=== PATIENT | female | born 1955 ===

== ENCOUNTER 2021-05-28 05:45 | Observation (INO) ==
[~2021-05-28 05:45] MED LIST: Buffered Lidocaine 1% SYRIN 1 ml INTRADERM ONE; DiMENhydriNATE IV 50 mg/ml 1 ml VIAL IV PUSH ONE; HYDROcodone/ACETAMIN 5/325 mg TAB PO PRN; Lactated Ringers 1000 ml BAG 1,000 ML IV SCH; Metoclopramide 5 MG/ML VIAL (10 mg) IV PRN; Naloxone 0.4 mg VIAL 0.4 mg/ml 1 ml VIAL IV PRN; Ondansetron 4 mg VIAL 2 MG/ML 2 ml VIAL IV PRN
[2021-05-28] MEDS ORDERED: DiMENhydriNATE IV 50 mg/ml 1 ml VIAL ONE (05:59)
[2021-05-28] MEDS ORDERED: ceFAZolin 2 GM in NS PREMIX 2 GM/100 ML BAG IVPB ONE (06:00)
[2021-05-28] MEDS ORDERED: Lidocaine 2% PF 5 ML VIAL ONE (06:55)
[2021-05-28] MEDS ORDERED: Sevoflurane BOTTLE ONE (06:56)
[2021-05-28] MEDS ORDERED: Propofol 10 MG/ML 20 ML BTL ONE ×2 (06:57→09:12)
[2021-05-28] MEDS ORDERED: fentaNYL 100 mcg/2 ml 50 MCG/ML VIAL ONE ×2 (06:59→11:18)
[2021-05-28] MEDS ORDERED: Bupivacaine 0.5% W/EPI SDV 10 ML VIAL INJ ONE (06:59)
[2021-05-28] MEDS ORDERED: Dexamethasone IV 4 MG/ML VIAL 1 ml VIAL ONE ×2 (06:59→08:26)
[2021-05-28] MEDS ORDERED: fentaNYL 250 mcg/5 ml 50 MCG/ML 5 ml VIAL (250 MCG) ONE (07:00)
[2021-05-28] MEDS ORDERED: Midazolam 2 mg/2 ml VIAL 1 mg/ml 2 ml VIAL (2 mg) ONE (07:00)
[2021-05-28] MEDS ORDERED: Ketamine HCL 50 mg/ml 10 ml VIAL (500 MG) ONE (07:00)
[2021-05-28] MEDS ORDERED: Rocuronium 50 mg VIAL 10 mg/ml 5 ml VIAL (50 mg) ONE (07:08)
[2021-05-28] MEDS ORDERED: diPHENhydraMINE IV 50 MG/ML 1 ml VIAL (BENADRYL) IV PRN (07:49)
[2021-05-28] MEDS ORDERED: Ondansetron 4 mg VIAL 2 MG/ML 2 ml VIAL IV PRN (07:49)
[2021-05-28] MEDS ORDERED: Morphine 2 MG/ML SYRINGE IV PRN (07:49)
[2021-05-28] MEDS ORDERED: Ondansetron ODT 4 mg TAB 4 MG TAB PO PRN (07:49)
[2021-05-28] MEDS ORDERED: Lactulose 30 ml UDC PO PRN (07:49)
[2021-05-28] MEDS ORDERED: Magnesium Hydroxide LIQ 30 ML UDC PO PRN (07:49)
[2021-05-28] MEDS ORDERED: diPHENhydraMINE 25 mg TAB PO PRN (07:49)
[2021-05-28] MEDS ORDERED: Dextran 70/Hypromellose Tears Eye Drops 15 ml BTL (for Artificials Tears) BOTH EYES PRN (08:01)
[2021-05-28] MEDS ORDERED: Ondansetron 4 mg VIAL 2 MG/ML 2 ml VIAL ONE (08:26)
[2021-05-28] MEDS ORDERED: DULoxetine DR 30 mg CAP PO SCH (09:00)
[2021-05-28] MEDS ORDERED: Pantoprazole 20 mg TAB (NF) PO SCH (09:00)
[2021-05-28] MEDS ORDERED: HYDROmorphone 1 MG/1 ML SYRINGE ONE (09:00)
[2021-05-28] MEDS: fentaNYL 100 mcg/2 ml 50 MCG/ML VIAL IV PRN ×3 (10:00→10:15)
[2021-05-28] MEDS: Lactated Ringers 1000 ml BAG 1,000 ML IV SCH ×2 (11:40→23:36)
[2021-05-28] MEDS: Magnesium Hydroxide LIQ 30 ML UDC PO SCH ×2 (13:53→21:17)
[2021-05-28] MEDS: Vitamin THERAPEUTIC TAB PO SCH (13:53)
[2021-05-28] MEDS: DULoxetine DR 30 mg CAP PO SCH (14:03)
[2021-05-28] MEDS: ceFAZolin 1 GM ADVAN 1 GM in NS 0.9% 50 ML 50 ML IVPB SCH ×2 (16:37→23:50)
[2021-05-29 06:29] LABS: Hematocrit 35 % (35-47); Hemoglobin 11.8 g/dL (12.0-16.0); Mean Platelet Volume 8.3 fL (7.4-10.4); Platelet Count 248 10^3/uL (150-450)
[2021-05-29 06:48] LABS: Calcium 8.5 mg/dL (8.6-10.3); EGFR African American 86.6 (>60); EGFR Non-African American 71.5 (>60)
[2021-05-29] MEDS: DULoxetine DR 30 mg CAP PO SCH (08:11)
[2021-05-29] MEDS: ceFAZolin 1 GM ADVAN 1 GM in NS 0.9% 50 ML 50 ML IVPB SCH (08:11)
[2021-05-29] MEDS: Vitamin THERAPEUTIC TAB PO SCH (08:12)
[2021-05-29] MEDS ORDERED: Flu vaccine *QUAD* 2021-22* 0.5 ML SYRINGE IM ONE (09:00)
[2021-05-29] MEDS: Magnesium Hydroxide LIQ 30 ML UDC PO SCH (10:53)
[2021-05-29 11:08] VITALS: BP 104/62
== END 2021-05-29 16:15 | disposition home or self-care (01) ==
LOC: INTOOBSV 05:45 → AA 05:45 → SSU 07:49
PROVIDERS: ADMIT Orthopaedic Surgery Adult Reconstructive Orthopaedic Surgery; ATTEND Orthopaedic Surgery Adult Reconstructive Orthopaedic Surgery